=== PATIENT | female | born 1970 ===

== ENCOUNTER → 2022-07-17 13:48 | Outpatient (CLI) | payer OTHER, SELFPAY ==
--- NOTE | ~2022-07-17 | XR_ITS ---
EXAMINATION: XR fl inj hip LT for MR/CT DATE: 07/17/2022 15:16 INDICATION: Chronic left hip pain TECHNIQUE: A time-out was performed to verify the patient's name, date of , and procedure to b e performed. The procedure including the risks, benefits, and alternatives was discussed with the pat ient. Risks discussed included bleeding and infection. The patient understood the risks and agreed to proceed. The skin overlying the left hip joint was prepped and draped in usual sterile fashion. An esthetic was administered with 1% lidocaine subcutaneously. A 22 G needle was advanced under fluoros copic guidance into the joint. Injection of 1 mL of Omnipaque 240 confirmed intra-articular position of the needle. Subsequently, injectate consisting of 12 mL of 2:1:1 mixture of sterile saline:Omnip aque 240:1% lidocaine mixed 200:1 with 529 mg/mL Multihance gadolinium contrast was injected with int ra-articular administration confirmed with intermittent fluoroscopy. The needle was removed and the e ntry site was cleaned and dressed. There were no immediate complications. Fluoroscopy exposure time was 0.2 minutes. The total number of images was 95. Total DAP was 0.509 Gycm^2 FINDINGS: Real-time fluoroscopy demonstrates the needle in the left hip joint. IMPRESSION: 1. Left hip joint injection of a dilute gadolinium contrast mixture for subsequent MRI arthrogram i ch will be dictated separately. Reviewed, dictated and finalized at location B. IMPRESSION: 1. Left hip joint injection of a dilute gadolinium contrast mixture for subsequ ent MRI arthrogram which will be dictated separately.
--- NOTE | ~2022-07-17 | MR_ITS ---
EXAMINATION: MR hip LT w con DATE: 07/17/2022 15:32 INDICATION: Chronic left hip pain TECHNIQUE: Magnetic resonance imaging (MRI) of the left hip was performed without intravenous contra st. Sequences included full-field axial PD-weighted FS FSE and T1-weighted FSE, coronal of the pelvis with PD-weighted FS FSE, small field of view of the left hip with axial PD-weighted FS FSE, sagitta l PD-weighted FS FSE and coronal PD weighted FS FSE. Additional radial T1-weighted FGR oriented ortho gonal to the acetabular rim were obtained for evaluation of the labrum. COMPARISON: None FINDINGS: Bones/labrum/cartilage: Alignment is normal. No fracture, avascular necrosis or pathologic marrow replacing process. Mild le ft hip osteoarthritis with mild nonuniform joint space narrowing along the posterior, anterosuperior and anteroinferior margins of the joint space. Left acetabular labrum is normal. Moderate osteoarthri tis with nonuniform joint space narrowing and subarticular edema-like signal change at the anteroinfe rior aspect of the left sacroiliac joint. Mild right hip osteoarthritis. Fluid: Physiologic amount fluid in the right hip joint. Mild increased fluid signal overlying the anterior f acet of the left greater trochanter consistent with mild left gluteus minimus bursitis. Additional mi nimal right gluteus minimus bursitis. No other abnormal fluid collections. Soft tissues: Normal and symmetric muscle bulk and signal in the pelvis and visualized proximal thighs. Mild tendin opathy without discrete tear at the bilateral gluteus medius minimus tendons. The remaining bilateral gluteal tendons along with the bilateral iliopsoas and proximal hamstring tendons are normal. The ut erus is not identified and has likely been surgically resected. Limited evaluation of visceral org ans of the pelvis is otherwise unremarkable including a normal appendix. No pathologically enlarged pelvic/inguinal lymphadenopathy. IMPRESSION: 1. Mild left hip osteoarthritis with normal labrum. 2. Moderate osteoarthritis with likely reactive subarticular edema-like signal change at the anteroin ferior left sacroiliac joint. 3. Mild bilateral gluteus minimus tendinopathy without discrete tear with associated mild left-sided and minimal right-sided gluteus minimus bursitis. Reviewed, dictated and finalized at location B. IMPRESSION: 1. Mild left hip osteoarthritis with normal labrum. 2. Moderate osteoarthritis with likely reactive subarticular edema-like signal change at the anteroinferior left sacroiliac joint. 3. Mild bilateral gluteus minimus tendinopathy without discrete tear with assoc iated mild left-sided and minimal right-sided gluteus minimus bursitis.
== END ==
PROVIDERS: PCP Family Medicine
DX: S73.192D Other sprain of left hip, subsequent encounter (principal); X58.XXXD Exposure to other specified factors, subsequent encounter; M16.12 Unilateral primary osteoarthritis, left hip
CPT/HCPCS: 20610; 73722; 77002; A9577; Q9967